=== PATIENT | male | born 1950 | race Caucasian/White ===

== ENCOUNTER 2019-02-02 14:50 | Inpatient (IN) ==
[2019-02-02] MEDS ORDERED: ONDANSETRON 4 MG/2 ML VIAL IV PRN (18:23)
[2019-02-02] MEDS ORDERED: DEXTROSE 10% 250 ML BAG IV PRN (19:21)
[2019-02-02] MEDS ORDERED: GLUCAGON 1 MG VIAL IM PRN (19:21)
[2019-02-02] MEDS: ZALEPLON 5 MG CAPSULE PO PRN (21:03)
[2019-02-02] MEDS: INSULIN REGULAR 100 UNIT/ML SUBCUT SCH (21:03)
[2019-02-02] MEDS: SODIUM CHLORIDE 0.9% 1,000 ML IV SCH (21:05)
[2019-02-03 01:39] LABS: Protein/Creatinine Ratio,Urine 0.4 RATIO
[2019-02-03] MEDS: ZALEPLON 5 MG CAPSULE PO PRN (02:58)
[2019-02-03 05:05] LABS: Basophils # 0.1 10*3/uL (0.0-0.2); Basophils % 0.5 % (0.0-0.8); Eosinophils # 0.3 10*3/uL (0.0-0.87); Eosinophils % 1.9 % (0.00-10.9); Hematocrit 39.4 VOL% (42.0-52.0); Hemoglobin 13.3 GM/DL (14.0-18.0); Immature Granulocytes % 0.7 %; Lymphocytes # 2.4 10*3/uL (1.4-4.0); Lymphocytes % 17.2 % (21.2-54.2); Mean Corpuscular HGB Conc 33.8 GM/DL (32-36); Mean Corpuscular Volume 91.4 FL (87-102); Mean Platelet Volume 10.7 FL (9.6-12.0); Monocytes % 8.5 % (1.7-12.7); Neutrophils % 71.2 % (38.7-73.9); Platelet Count 217 T/CUMM (130-400); Red Blood Count 4.31 MC/CUMM (3.8-5.5); White Blood Count 13.7 T/CUMM (4-12)
[2019-02-03 05:24] LABS: Albumin 3.5 G/DL (3.4-5.0); Bilirubin,Total 1.4 MG/DL (0.2-1.0); Calcium 8.7 MG/DL (8.5-10.1); Osmolality,Calculated 290.4 MOS/KG (273-304); Total Protein 7.2 G/DL (6.4-8.3)
[2019-02-03] MEDS: SODIUM CHLORIDE 0.9% 1,000 ML IV SCH ×2 (05:59→16:51)
[2019-02-03] MEDS: INSULIN REGULAR 100 UNIT/ML SUBCUT SCH ×4 (08:48→21:19)
[2019-02-03] MEDS: TAMSULOSIN 0.4 MG CAPSULE PO SCH (08:48)
[2019-02-03] MEDS: PANTOPRAZOLE 40 MG TABLET PO SCH (08:48)
[2019-02-03] MEDS ORDERED: NON-FORMULARY MEDICATION (Mirabegron [Myrbetriq] 25 MG) PO SCH (09:15)
[2019-02-03] MEDS: ATORVASTATIN 20 MG TABLET PO SCH (09:40)
[2019-02-03] MEDS: SKIN HEALING OINT (AQUAPHOR) 50 GM TUBE TOP SCH (16:51)
[2019-02-03] MEDS: traZODone 50 MG TABLET PO SCH (21:21)
[2019-02-03] MEDS: DESITIN 4OZ/NYSTATIN 15 GRAM MIXTURE PASTE TOP SCH (21:22)
[2019-02-04] MEDS: SODIUM CHLORIDE 0.9% 1,000 ML IV SCH ×2 (02:52→17:20)
[2019-02-04 05:27] LABS: Basophils % 0.2 % (0.0-0.8); Eosinophils # 0.3 10*3/uL (0.0-0.87); Eosinophils % 2.2 % (0.00-10.9); Hematocrit 36.3 VOL% (42.0-52.0); Hemoglobin 12.3 GM/DL (14.0-18.0); Immature Granulocytes % 0.8 %; Immature Granulocytes Absolute 0.11 #; Lymphocytes % 15.3 % (21.2-54.2); Mean Corpuscular HGB Conc 33.9 GM/DL (32-36); Mean Corpuscular Volume 91.7 FL (87-102); Mean Platelet Volume 10.7 FL (9.6-12.0); Monocytes % 8.7 % (1.7-12.7); Neutrophils % 72.8 % (38.7-73.9); Platelet Count 191 T/CUMM (130-400); Red Blood Count 3.96 MC/CUMM (3.8-5.5); Red Cell Distribution Width 13.2 % (9.3-17.3); White Blood Count 13.3 T/CUMM (4-12)
[2019-02-04 05:34] LABS: Calcium 8.1 MG/DL (8.5-10.1)
[2019-02-04] MEDS: INSULIN REGULAR 100 UNIT/ML SUBCUT SCH ×4 (08:12→21:19)
[2019-02-04] MEDS: PANTOPRAZOLE 40 MG TABLET PO SCH (08:26)
[2019-02-04] MEDS: ATORVASTATIN 20 MG TABLET PO SCH (08:26)
[2019-02-04] MEDS: SKIN HEALING OINT (AQUAPHOR) 50 GM TUBE TOP SCH (08:26)
[2019-02-04] MEDS: TAMSULOSIN 0.4 MG CAPSULE PO SCH (08:26)
[2019-02-04] MEDS: DESITIN 4OZ/NYSTATIN 15 GRAM MIXTURE PASTE TOP SCH ×2 (08:26→21:18)
[2019-02-04] MEDS ORDERED: MAGNESIUM SULF RIDER 4 GM in PREMIX 1 EACH IV PRN (09:17)
[2019-02-04] MEDS: MAGNESIUM SULF RIDER 2 GM in PREMIX 1 EACH IV PRN ×2 (11:19→14:58)
[2019-02-04] MEDS: traZODone 50 MG TABLET PO SCH (21:16)
[2019-02-05] MEDS: SODIUM CHLORIDE 0.9% 1,000 ML IV SCH ×3 (00:06→09:07)
[2019-02-05 05:41] LABS: Calcium 8.3 MG/DL (8.5-10.1); Osmolality,Calculated 277.8 MOS/KG (273-304)
[2019-02-05] MEDS: INSULIN REGULAR 100 UNIT/ML SUBCUT SCH ×3 (09:04→17:36)
[2019-02-05] MEDS: TAMSULOSIN 0.4 MG CAPSULE PO SCH (09:05)
[2019-02-05] MEDS: ATORVASTATIN 20 MG TABLET PO SCH (09:05)
[2019-02-05] MEDS: PANTOPRAZOLE 40 MG TABLET PO SCH (09:06)
[2019-02-05] MEDS: SKIN HEALING OINT (AQUAPHOR) 50 GM TUBE TOP SCH (09:07)
[2019-02-05] MEDS: DESITIN 4OZ/NYSTATIN 15 GRAM MIXTURE PASTE TOP SCH (09:07)
[2019-02-05 16:17] VITALS: BP 134/70
== END 2019-02-05 17:38 | disposition home health service (06) | DRG 683 ==
LOC: N.5E → SUATTDRO 17:56
PROVIDERS: ADMIT Internal Medicine; ATTEND Internal Medicine